=== PATIENT | female | born 1990 | race Caucasian/White ===

== ENCOUNTER 2019-05-12 10:42 | Day surgery (SDC) | payer OTHER ==
[~2019-05-12] VITALS: Ht 160 cm; Wt 49.1 kg
[~2019-05-12 10:42] MED LIST: BIRTH CONTROL; OMEPRAZOLE
[2019-05-12 11:15] VITALS: Ht 160 cm; Wt 49.1 kg
[2019-05-12 11:38] VITALS: BP 106/59; PULSE 79; RESP 18
--- NOTE | 2019-05-12 11:51 | PREAC ---
Date/Time of Note Date/Time of Note DATE: 05/12/19 TIME: 11:50 Anesthesia Eval and Record Evaluation Time Pre-Procedure Interview DATE: 05/12/19 TIME: 11:50 Age 28 Sex female NPO: 8 hrs Preoperative diagnosis gerd Planned procedure egd Past Medical History Past Medical History: Includes GI: GERD Surgery & Anesthesia Issues No known issue Meds Anticoagulation: No Beta Elly within 24 hr: No Reason Beta Elly not given: Pt. not on B-Elly Reported Medications [ Control] No Conflict Check 05/12/19 [Omeprazole] No Conflict Check 05/12/19 Meds reviewed: Yes Allergies Coded Allergies: No Known Allergy (Unverified , 05/12/19) Allergies Reviewed: Yes Labs/Studies Labs Reviewed: Reviewed by anesthesiologist test: Negative Pre-procedure Exam Last vitals Vital Signs Date Temp Pulse Resp B/P (MAP) Pulse Ox O2 O2 Flow FiO2 Time Delivery Rate 05/12/19 98.9 79 18 106/59 98 Room Air 11:38 (75) Airway: Adequate mouth opening, Adequate thyromental dist Mallampati: Mallampati II Teeth: Normal Lung: Normal Heart: Normal ASA Physical Status ASA physical status: 2 Emergency: None Planned Anesthetic General/MAC: Mask, MAC Pre-operative Attestations Prior to commencing anesthesia and surgery, the patient was re-evaluated, there was verification of: *The patient's identity *The results of appropriate recent lab work and preoperative vital signs *The above evaluation not changing prior to induction *Anesthetic plan, risk benefits, alternative and complications discussed with patient/family; questions answered; patient/family understands, accepts and wishes to proceed. VIRAL ALBERT May 12, 2019 11:51
[2019-05-12] MEDS ORDERED: PROPOFOL 40 ML ONE (11:52)
--- NOTE | 2019-05-13 13:32 | PAC ---
Date/Time of Note Date/Time of Note DATE: 05/13/19 TIME: 13:31 Post-Anesthesia Notes Post-Anesthesia Note Last documented vital signs Vital Signs Date Temp Pulse Resp B/P (MAP) Pulse Ox O2 O2 Flow FiO2 Time Delivery Rate 05/12/19 98.9 79 18 106/59 98 Room Air 11:38 (75) Activity: WNL Respiratory function: WNL Cardiovascular function: WNL Mental status: Baseline Pain reasonably controlled: Yes Hydration appropriate: Yes Nausea/Vomiting absent: Yes VIRAL ALBERT May 13, 2019 13:32
== END 2019-05-12 12:33 | disposition home or self-care (01) ==
LOC: GIL 10:42
PROVIDERS: ATTEND Internal Medicine Gastroenterology
DX: K44.9 Diaphragmatic hernia without obstruction or gangrene (principal); K21.9 Gastro-esophageal reflux disease without esophagitis
CPT/HCPCS: 43239; 84703; 88305; 88312; Z7610